=== PATIENT | female | born 1955 | race African-American/Black ===

== ENCOUNTER 2017-07-14 21:00 | Emergency (ER) | payer BC ==
[~2017-07-14] VITALS: Ht 162.6 cm; Wt 81.6 kg
[2017-07-14 21:15] VITALS: BP_SYST 160
[2017-07-14 22:36] VITALS: BP_SYST 148
== END 2017-07-14 22:36 | disposition home or self-care (01) ==
LOC: SED 21:00
DX: S70.361A Insect bite (nonvenomous), right thigh, initial encounter (principal); Z88.8 Allergy status to other drugs, medicaments and biological substances; W57.XXXA Bitten or stung by nonvenomous insect and other nonvenomous arthropods, initial encounter; Y93.89 Activity, other specified; Y92.89 Other specified places as the place of occurrence of the external cause; Y99.8 Other external cause status
CPT/HCPCS: 99283